=== PATIENT | female | born 1975 | race Caucasian/White ===

== ENCOUNTER 2016-07-05 19:48 | Emergency (ER) | payer MEDICAID ==
[2016-07-05 21:00] LABS: microscopic required? NO
[2016-07-05 21:04] LABS: urine erythrocyte NEGATIVE (NEGATIVE)
[2016-07-05 21:29] LABS: BASOPHIL % 0.1 % (0-2); PLATELET COUNT 304 x10^3mcL (130-400); RED CELL DISTRIBUTION WIDTH 13.5 % (11.5-14.5)
[2016-07-05 21:32] LABS: CALCIUM 8.3 mg/dL (8.5-10.1); CARBON DIOXIDE 30.6 mmol/L (21-32); CHLORIDE SERUM 101 mmol/L (98-107); CREATININE SERUM 0.7 mg/dL (0.6-1.0); GFR1 > 60 mL/min; GLUCOSE SERUM 332 mg/dL (74-106); POTASSIUM SERUM 3.9 mmol/L (3.5-5.1); SODIUM SERUM 137 mmol/L (136-145)
[2016-07-05 21:37] LABS: ALKALINE PHOSPHATASE 103 U/L (46-116); ALT/SGPT 24 U/L (14-59); AST/SGOT 13 U/L (15-37); BILIRUBIN TOTAL 0.26 mg/dL (0.20-1.00); LIPASE 198 IU/L (73-393); TOTAL PROTEIN, SERUM 6.4 g/dL (6.4-8.2)
[2016-07-05 22:31] VITALS: BP 133/87
== END 2016-07-05 22:31 | disposition home or self-care (01) ==
LOC: ED 19:48
PROVIDERS: Emergency Medicine
DX: E11.65 Type 2 diabetes mellitus with hyperglycemia (principal); Z79.4 Long term (current) use of insulin
CPT/HCPCS: 36600; 82962; J7030

== ENCOUNTER 2017-06-12 07:54 | Inpatient (IN) | payer OTHER ==
[~2017-06-12] VITALS: Ht 157.5 cm; Wt 61.3 kg
[2017-06-12 09:48] LABS: microscopic required? NO
[2017-06-12 10:08] LABS: BASOPHIL % 0.1 % (0-2); PLATELET COUNT 386 x10^3mcL (130-400)
[2017-06-12 10:15] LABS: RED CELL DISTRIBUTION WIDTH 16.2 % (11.5-14.5)
[2017-06-12 10:20] LABS: UA SPECIFIC GRAVITY <=1.005 (1.005-1.035); urine erythrocyte NEGATIVE (NEGATIVE)
[2017-06-12 10:43] LABS: CALCIUM 9.2 mg/dL (8.5-10.1); CARBON DIOXIDE 28.8 mmol/L (21-32); CHLORIDE SERUM 97 mmol/L (98-107); CREATININE SERUM 0.8 mg/dL (0.6-1.0); GFR1 > 60 mL/min; GLUCOSE SERUM 421 mg/dL (74-106); POTASSIUM SERUM 4.5 mmol/L (3.5-5.1); SODIUM SERUM 133 mmol/L (136-145)
[2017-06-12] MEDS ORDERED: NOVI SQ (10:43)
[2017-06-12] MEDS ORDERED: LANTUS SOLOS100 U/M1 SQ (10:43)
[2017-06-12 10:47] LABS: ALKALINE PHOSPHATASE 428 U/L (46-116); ALT/SGPT 115 U/L (14-59); AST/SGOT 70 U/L (15-37); BILIRUBIN TOTAL 0.24 mg/dL (0.20-1.00); LIPASE 55 IU/L (73-393); TOTAL PROTEIN, SERUM 7.4 g/dL (6.4-8.2)
[2017-06-12 10:48] LABS: ALBUMIN 2.4 g/dL (3.4-5.0); AMYLASE 16 U/L (25-115); CHOLESTEROL 89 mg/dL (<200); HDL CHOLESTEROL 34 mg/dL (40-60)
[2017-06-12 13:29] VITALS: BP 125/78
[2017-06-12 13:31] LABS: CHOLESTEROL/HDL RATIO 2.6
[2017-06-12 13:43] VITALS: Ht 157.5 cm; Wt 61.3 kg
[2017-06-12 13:49] LABS: AMPHETAMINE QUAL UR POSITIVE (NEG <=1000)
[2017-06-12 16:53] VITALS: BP 128/76
[2017-06-12 16:59] VITALS: BP 154/74
[2017-06-12 21:13] VITALS: BP 126/79
[2017-06-13 05:49] VITALS: BP 123/79
[2017-06-13 06:53] LABS: CALCIUM 8.2 mg/dL (8.5-10.1); CARBON DIOXIDE 22.5 mmol/L (21-32); CHLORIDE SERUM 105 mmol/L (98-107); CREATININE SERUM 0.7 mg/dL (0.6-1.0); GFR1 > 60 mL/min; GLUCOSE SERUM 133 mg/dL (74-106); SODIUM SERUM 137 mmol/L (136-145)
[2017-06-13 06:58] LABS: PLATELET COUNT 372 x10^3mcL (130-400)
[2017-06-13 07:04] LABS: BASOPHIL % 0 % (0-2); RED CELL DISTRIBUTION WIDTH 16.3 % (11.5-14.5)
== END 2017-06-13 07:04 | disposition left against medical advice (07) | DRG 139 ==
LOC: ED 07:54 → DU 12:19
PROVIDERS: Emergency Medicine; Family Medicine
DX: J18.9 Pneumonia, unspecified organism (principal); N17.0 Acute kidney failure with tubular necrosis; E43 Unspecified severe protein-calorie malnutrition; E87.8 Other disorders of electrolyte and fluid balance, not elsewhere classified; F32.9 Major depressive disorder, single episode, unspecified; F17.210 Nicotine dependence, cigarettes, uncomplicated; M54.5 Low back pain; E87.1 Hypo-osmolality and hyponatremia; D64.9 Anemia, unspecified; E11.65 Type 2 diabetes mellitus with hyperglycemia; E83.51 Hypocalcemia; F15.10 Other stimulant abuse, uncomplicated; Z98.51 Tubal ligation status; Z79.4 Long term (current) use of insulin
CPT/HCPCS: 36600; 82962; 83880; 94150; J1100; J1815; J1885; J1956; J7030; Q0092

== ENCOUNTER 2017-06-24 01:14 | Inpatient (IN) | payer OTHER ==
[~2017-06-24] VITALS: Ht 172.7 cm; Wt 60.7 kg
[~2017-06-24 01:14] MED LIST: LANTUS SOLOS100 U/M1 SQ; NOVI SQ
[2017-06-24 03:40] LABS: BASOPHIL % 0.8 % (0-2)
[2017-06-24 03:43] LABS: RED CELL DISTRIBUTION WIDTH 15.6 % (11.5-14.5)
[2017-06-24 03:44] LABS: BILIRUBIN TOTAL 0.4 mg/dL (0.20-1.00); CALCIUM 10.1 mg/dL (8.5-10.1); CARBON DIOXIDE 15.4 mmol/L (21-32); CREATININE SERUM 1.2 mg/dL (0.6-1.0); PLATELET COUNT 864 x10^3mcL (130-400); POTASSIUM SERUM 4.8 mmol/L (3.5-5.1); TOTAL PROTEIN, SERUM 8.2 g/dL (6.4-8.2)
[2017-06-24 03:50] LABS: UA SPECIFIC GRAVITY 1.015 (1.005-1.035); microscopic required? YES; urine erythrocyte TRACE (NEGATIVE)
[2017-06-24 03:53] LABS: ALBUMIN 3.1 g/dL (3.4-5.0)
[2017-06-24 04:03] LABS: AMPHETAMINE QUAL UR POSITIVE (NEG <=1000)
[2017-06-24 04:31] LABS: GLUCOSE SERUM 861.88 mg/dL (74-106)
[2017-06-24 06:11] LABS: MAGNESIUM 2.5 mg/dL (1.8-2.4); PHOSPHOROUS 4.4 mg/dL (2.5-4.9)
[2017-06-24 06:12] LABS: CHOLESTEROL/HDL RATIO 4.6
[2017-06-24 06:15] VITALS: BP 116/58
[2017-06-24 06:35] LABS: FREE T4 1.27 ng/dL (0.76-1.46); FREE THYROXINE INDEX 3.2 ug/dL (1.4-4.5); T4(THYROXINE) 9.7 ug/dL (4.7-13.3)
[2017-06-24 07:15] VITALS: BP 110/60
[2017-06-24 09:03] LABS: T3 TOTAL 0.7 ng/mL
[2017-06-24 09:29] LABS: CALCIUM 9.6 mg/dL (8.5-10.1); CARBON DIOXIDE 24.8 mmol/L (21-32); CHLORIDE SERUM 99 mmol/L (98-107); CREATININE SERUM 0.9 mg/dL (0.6-1.0); GFR1 > 60 mL/min; GLUCOSE SERUM 225 mg/dL (74-106); MAGNESIUM 2.4 mg/dL (1.8-2.4); PHOSPHOROUS 2.6 mg/dL (2.5-4.9); POTASSIUM SERUM 3.5 mmol/L (3.5-5.1); SODIUM SERUM 126 mmol/L (136-145)
[2017-06-24 11:00] VITALS: BP 130/74
[2017-06-24 14:58] LABS: CALCIUM 8.5 mg/dL (8.5-10.1); CARBON DIOXIDE 18.9 mmol/L (21-32); CHLORIDE SERUM 100 mmol/L (98-107); CREATININE SERUM 0.7 mg/dL (0.6-1.0); GFR1 > 60 mL/min; GLUCOSE SERUM 381 mg/dL (74-106); MAGNESIUM 2.1 mg/dL (1.8-2.4); PHOSPHOROUS 2.2 mg/dL (2.5-4.9); POTASSIUM SERUM 5.2 mmol/L (3.5-5.1); SODIUM SERUM 126 mmol/L (136-145)
[2017-06-24 15:25] VITALS: BP 126/66
[2017-06-24 20:00] VITALS: BP 106/61
[2017-06-25 00:02] VITALS: BP 112/70
[2017-06-25 04:00] VITALS: BP 117/55
[2017-06-25 05:43] LABS: BASOPHIL % 0.6 % (0-2); RED BLOOD CELLS 3.49 M/mm3 (4.10-5.10)
[2017-06-25 05:46] LABS: RED CELL DISTRIBUTION WIDTH 15.5 % (11.5-14.5)
[2017-06-25 05:50] LABS: PLATELET COUNT 714 x10^3mcL (130-400)
[2017-06-25 06:01] LABS: CALCIUM 8.2 mg/dL (8.5-10.1); CARBON DIOXIDE 27.1 mmol/L (21-32); CHLORIDE SERUM 104 mmol/L (98-107); CREATININE SERUM 0.7 mg/dL (0.6-1.0); GFR1 > 60 mL/min; GLUCOSE SERUM 80 mg/dL (74-106); MAGNESIUM 1.7 mg/dL (1.8-2.4); PHOSPHOROUS 2.4 mg/dL (2.5-4.9); POTASSIUM SERUM 3.4 mmol/L (3.5-5.1); SODIUM SERUM 139 mmol/L (136-145)
[2017-06-25 06:07] LABS: IRON 38 ug/dL (50-170); TOTAL IRON BINDING CAPACITY 294 ug/dL (250-450)
[2017-06-25 08:01] VITALS: BP 117/50
[2017-06-25 11:12] VITALS: Ht 172.7 cm; Wt 60.7 kg
[2017-06-25 14:33] VITALS: BP 127/72
[2017-06-25 16:08] VITALS: BP 121/65
[2017-06-25 21:20] VITALS: BP 123/71
[2017-06-26 05:24] VITALS: BP 111/69
[2017-06-26 06:17] LABS: BASOPHIL % 0.5 % (0-2)
[2017-06-26 06:29] LABS: PLATELET COUNT 571 x10^3mcL (130-400); RED CELL DISTRIBUTION WIDTH 15.6 % (11.5-14.5)
[2017-06-26 06:48] LABS: CALCIUM 8.3 mg/dL (8.5-10.1); CARBON DIOXIDE 25.8 mmol/L (21-32); CHLORIDE SERUM 99 mmol/L (98-107); CREATININE SERUM 0.7 mg/dL (0.6-1.0); GFR1 > 60 mL/min; GLUCOSE SERUM 290 mg/dL (74-106); MAGNESIUM 2.1 mg/dL (1.8-2.4); PHOSPHOROUS 2.9 mg/dL (2.5-4.9); POTASSIUM SERUM 4.4 mmol/L (3.5-5.1); SODIUM SERUM 135 mmol/L (136-145)
[2017-06-26 08:18] VITALS: BP 117/55
[2017-06-26 13:30] VITALS: BP 138/77
[2017-06-26 16:38] VITALS: BP 134/83
[2017-06-26 20:26] VITALS: BP 136/80
[2017-06-27 06:50] VITALS: BP 112/68
[2017-06-27 07:24] LABS: BASOPHIL % 0.4 % (0-2); PLATELET COUNT 537 x10^3mcL (130-400)
[2017-06-27 07:31] LABS: CALCIUM 8.6 mg/dL (8.5-10.1); CARBON DIOXIDE 26.5 mmol/L (21-32); CHLORIDE SERUM 101 mmol/L (98-107); CREATININE SERUM 0.6 mg/dL (0.6-1.0); GFR1 > 60 mL/min; GLUCOSE SERUM 331 mg/dL (74-106); MAGNESIUM 1.9 mg/dL (1.8-2.4); PHOSPHOROUS 3.4 mg/dL (2.5-4.9); POTASSIUM SERUM 4.8 mmol/L (3.5-5.1); SODIUM SERUM 134 mmol/L (136-145)
[2017-06-27 09:30] VITALS: BP 125/68
[2017-06-27 13:25] VITALS: BP 119/65
[2017-06-27 17:18] VITALS: BP 141/79
[2017-06-27 21:59] VITALS: BP 122/65
[2017-06-28 06:17] VITALS: BP 128/66
[2017-06-28 07:27] LABS: BASOPHIL % 0.7 % (0-2)
[2017-06-28 07:33] LABS: PLATELET COUNT 470 x10^3mcL (130-400)
[2017-06-28 07:42] LABS: CALCIUM 8.5 mg/dL (8.5-10.1); CHLORIDE SERUM 101 mmol/L (98-107); CREATININE SERUM 0.8 mg/dL (0.6-1.0); GFR1 > 60 mL/min; GLUCOSE SERUM 403 mg/dL (74-106); MAGNESIUM 2.1 mg/dL (1.8-2.4); PHOSPHOROUS 4.4 mg/dL (2.5-4.9); POTASSIUM SERUM 4.7 mmol/L (3.5-5.1); SODIUM SERUM 136 mmol/L (136-145)
[2017-06-28 09:53] VITALS: BP 118/63
[2017-06-28 13:38] VITALS: BP 123/73
[2017-06-28 17:40] VITALS: BP 137/83
[2017-06-28] MEDS ORDERED: MOT800 PO (18:55)
[2017-06-28 19:38] VITALS: BP 137/83
== END 2017-06-28 20:03 | disposition home or self-care (01) | DRG 420 ==
LOC: ED 01:14 → IC 04:40 → DU 06-25 14:15
PROVIDERS: Emergency Medicine; Family Medicine
DX: E10.10 Type 1 diabetes mellitus with ketoacidosis without coma (principal); N17.0 Acute kidney failure with tubular necrosis; E87.1 Hypo-osmolality and hyponatremia; M25.552 Pain in left hip; F32.9 Major depressive disorder, single episode, unspecified; F15.10 Other stimulant abuse, uncomplicated; D64.9 Anemia, unspecified; D47.3 Essential (hemorrhagic) thrombocythemia; E44.0 Moderate protein-calorie malnutrition; Z68.23 Body mass index [BMI] 23.0-23.9, adult; E83.41 Hypermagnesemia; E83.39 Other disorders of phosphorus metabolism; E03.9 Hypothyroidism, unspecified; E87.5 Hyperkalemia; E78.1 Pure hyperglyceridemia
CPT/HCPCS: 36600; 82962; 83880; 84439; G0480; J1815; J1885; J2060; J2543; J3475; J3490; J7030; J7042; Q0092; Q0162; Q0177

== ENCOUNTER 2017-07-09 23:50 | Emergency (ER) | payer OTHER ==
[~2017-07-09 23:50] MED LIST changes: +MOT800 PO
[2017-07-10 04:55] VITALS: BP 114/65
== END 2017-07-10 04:55 | disposition home or self-care (01) ==
LOC: ED 23:50
DX: E11.65 Type 2 diabetes mellitus with hyperglycemia (principal); F41.9 Anxiety disorder, unspecified
CPT/HCPCS: 82962; J1815

== ENCOUNTER 2017-08-25 14:31 | Inpatient (IN) | payer OTHER ==
[~2017-08-25] VITALS: Ht 157.5 cm; Wt 54.9 kg
[2017-08-25] MEDS ORDERED: CELEXA20 MG PO (15:19)
[2017-08-25 15:36] LABS: BASOPHIL % 0.4 % (0-2); PLATELET COUNT 325 x10^3mcL (130-400)
[2017-08-25 15:38] LABS: RED CELL DISTRIBUTION WIDTH 15.6 % (11.5-14.5)
[2017-08-25 15:58] LABS: FREE T4 1.07 ng/dL (0.76-1.46); FREE THYROXINE INDEX 2.3 ug/dL (1.4-4.5); T4(THYROXINE) 7.1 ug/dL (4.7-13.3)
[2017-08-25 15:59] LABS: CK-MB 0.7 ng/mL (0-3.6)
[2017-08-25 16:01] LABS: T3 TOTAL 0.62 ng/mL
[2017-08-25 16:02] LABS: BILIRUBIN TOTAL 0.4 mg/dL (0.20-1.00); C REACTIVE PROTEIN 1.2 mg/dL (<=0.9); CALCIUM 8.4 mg/dL (8.5-10.1); CARBON DIOXIDE 15.9 mmol/L (21-32); CREATININE SERUM 1.1 mg/dL (0.6-1.0); POTASSIUM SERUM 5.4 mmol/L (3.5-5.1); TOTAL PROTEIN, SERUM 7.1 g/dL (6.4-8.2)
[2017-08-25 16:11] LABS: ALBUMIN 3.2 g/dL (3.4-5.0)
[2017-08-25 16:16] LABS: UA SPECIFIC GRAVITY <=1.005 (1.005-1.035); microscopic required? YES; urine erythrocyte 3+ (NEGATIVE)
[2017-08-25 16:22] LABS: ERYTHROCYTE SED RATE 27 mm/hr (0-20)
[2017-08-25 17:31] LABS: MAGNESIUM 2.1 mg/dL (1.8-2.4); PHOSPHOROUS 4.7 mg/dL (2.5-4.9)
[2017-08-25 18:05] VITALS: BP 108/60
[2017-08-25 18:44] LABS: AMPHETAMINE QUAL UR POSITIVE (NEG <=1000)
[2017-08-25 20:00] VITALS: BP 101/55
[2017-08-25 20:03] VITALS: Ht 157.5 cm; Wt 54.9 kg
[2017-08-25 20:59] LABS: CALCIUM 7.6 mg/dL (8.5-10.1); CARBON DIOXIDE 20.6 mmol/L (21-32); CHLORIDE SERUM 101 mmol/L (98-107); CREATININE SERUM 0.8 mg/dL (0.6-1.0); GFR1 > 60 mL/min; GLUCOSE SERUM 284 mg/dL (74-106); MAGNESIUM 1.7 mg/dL (1.8-2.4); PHOSPHOROUS 3.1 mg/dL (2.5-4.9); POTASSIUM SERUM 3.8 mmol/L (3.5-5.1); SODIUM SERUM 132 mmol/L (136-145)
[2017-08-25 21:00] VITALS: BP 102/55
[2017-08-25 22:00] VITALS: BP 83/49
[2017-08-26] VITALS (12 sets, daily range): BP systolic 89–108; BP diastolic 49–65
[2017-08-26 01:47] LABS: CALCIUM 7.3 mg/dL (8.5-10.1); CARBON DIOXIDE 23.8 mmol/L (21-32); CHLORIDE SERUM 104 mmol/L (98-107); CREATININE SERUM 0.7 mg/dL (0.6-1.0); GFR1 > 60 mL/min; GLUCOSE SERUM 202 mg/dL (74-106); MAGNESIUM 1.8 mg/dL (1.8-2.4); PHOSPHOROUS 3.5 mg/dL (2.5-4.9); SODIUM SERUM 135 mmol/L (136-145)
[2017-08-26 05:01] LABS: BASOPHIL % 0.8 % (0-2); PLATELET COUNT 302 x10^3mcL (130-400); RED CELL DISTRIBUTION WIDTH 15.8 % (11.5-14.5)
[2017-08-26 05:08] LABS: CALCIUM 7.3 mg/dL (8.5-10.1); CARBON DIOXIDE 23.4 mmol/L (21-32); CHLORIDE SERUM 106 mmol/L (98-107); CREATININE SERUM 0.6 mg/dL (0.6-1.0); GFR1 > 60 mL/min; GLUCOSE SERUM 107 mg/dL (74-106); MAGNESIUM 1.9 mg/dL (1.8-2.4); PHOSPHOROUS 3.1 mg/dL (2.5-4.9); POTASSIUM SERUM 3.8 mmol/L (3.5-5.1); SODIUM SERUM 136 mmol/L (136-145)
[2017-08-27 05:31] VITALS: BP 132/71
[2017-08-27 06:50] LABS: BASOPHIL % 0.4 % (0-2); PLATELET COUNT 250 x10^3mcL (130-400)
[2017-08-27 06:55] LABS: CALCIUM 7.5 mg/dL (8.5-10.1); CARBON DIOXIDE 26.1 mmol/L (21-32); CHLORIDE SERUM 112 mmol/L (98-107); CREATININE SERUM 0.5 mg/dL (0.6-1.0); GFR1 > 60 mL/min; GLUCOSE SERUM 143 mg/dL (74-106); MAGNESIUM 1.9 mg/dL (1.8-2.4); PHOSPHOROUS 3.2 mg/dL (2.5-4.9); POTASSIUM SERUM 3.8 mmol/L (3.5-5.1); SODIUM SERUM 139 mmol/L (136-145)
[2017-08-27 07:43] LABS: IRON 37 ug/dL (50-170); TOTAL IRON BINDING CAPACITY 262 ug/dL (250-450)
[2017-08-27 08:58] VITALS: BP 103/50
[2017-08-27 11:19] LABS: RED BLOOD CELLS 3.61 M/mm3 (4.10-5.10)
[2017-08-27 13:50] VITALS: BP 121/68
[2017-08-27] MEDS ORDERED: CELEXA20 MG PO (14:06)
[2017-08-27] MEDS ORDERED: NOVOLOG FLEX100 U/M1 SC (14:08)
[2017-08-27 14:32] VITALS: BP 121/68
== END 2017-08-27 15:26 | disposition home or self-care (01) | DRG 420 ==
LOC: ED 14:31 → DU 16:19 → IC 16:19 → DU 08-26 16:51
PROVIDERS: Family Medicine; Specialist; Student in an Organized Health Care Education/Training Program
PROC: 02HV33Z Insertion of Infusion Device into Superior Vena Cava, Percutaneous Approach (ICD-10-PCS; principal; 2017-08-25)
PROC: B548ZZA Ultrasonography of Superior Vena Cava, Guidance (ICD-10-PCS; 2017-08-25)
DX: E10.10 Type 1 diabetes mellitus with ketoacidosis without coma (principal); N17.0 Acute kidney failure with tubular necrosis; E10.51 Type 1 diabetes mellitus with diabetic peripheral angiopathy without gangrene; E87.5 Hyperkalemia; F32.9 Major depressive disorder, single episode, unspecified; K21.9 Gastro-esophageal reflux disease without esophagitis; F17.210 Nicotine dependence, cigarettes, uncomplicated; F12.90 Cannabis use, unspecified, uncomplicated; E87.1 Hypo-osmolality and hyponatremia; E44.0 Moderate protein-calorie malnutrition; E86.0 Dehydration; Z79.4 Long term (current) use of insulin; Z91.14 Patient's other noncompliance with medication regimen; Z68.1 Body mass index [BMI] 19.9 or less, adult; Z98.51 Tubal ligation status
CPT/HCPCS: 36556; 36600; 82962; 83880; 84439; J1642; J1815; J1885; J2060; J2405; J3490; J7030; Q0092

== ENCOUNTER 2017-10-08 12:33 | Emergency (ER) | payer OTHER ==
[~2017-10-08] VITALS: Ht 157.5 cm; Wt 58.5 kg
[~2017-10-08 12:33] MED LIST changes: +CELEXA20 MG PO; +NOVOLOG FLEX100 U/M1 SC
[2017-10-08 12:37] VITALS: Ht 157.5 cm; Wt 58.5 kg
[2017-10-08 13:14] LABS: BASOPHIL % 0.3 % (0-2); PLATELET COUNT 322 x10^3mcL (130-400); RED CELL DISTRIBUTION WIDTH 13.9 % (11.5-14.5)
[2017-10-08 13:21] LABS: CALCIUM 7.6 mg/dL (8.5-10.1); CARBON DIOXIDE 27.5 mmol/L (21-32); CHLORIDE SERUM 100 mmol/L (98-107); CREATININE SERUM 0.7 mg/dL (0.6-1.0); GFR1 > 60 mL/min; GLUCOSE SERUM 411 mg/dL (74-106); POTASSIUM SERUM 4.1 mmol/L (3.5-5.1); SODIUM SERUM 133 mmol/L (136-145)
[2017-10-08 15:15] LABS: microscopic required? NO
[2017-10-08 15:48] LABS: urine erythrocyte NEGATIVE (NEGATIVE)
[2017-10-08 15:55] VITALS: BP 115/64
== END 2017-10-08 15:55 | disposition home or self-care (01) ==
LOC: ED 12:33
PROVIDERS: Emergency Medicine
DX: E86.0 Dehydration (principal); E11.65 Type 2 diabetes mellitus with hyperglycemia; K05.00 Acute gingivitis, plaque induced; B35.3 Tinea pedis; E83.51 Hypocalcemia; K21.9 Gastro-esophageal reflux disease without esophagitis
CPT/HCPCS: 83880; J1815; J7030; Q0092

== ENCOUNTER 2018-03-25 21:47 | Inpatient (IN) | payer OTHER ==
[~2018-03-25] VITALS: Ht 157.5 cm; Wt 59.6 kg
[2018-03-25 22:48] LABS: microscopic required? NO
[2018-03-25 23:19] LABS: UA SPECIFIC GRAVITY <=1.005 (1.005-1.035); urine erythrocyte NEGATIVE (NEGATIVE)
[2018-03-25 23:19] LABS: BASOPHIL % 0.5 % (0-2); PLATELET COUNT 232 x10^3mcL (130-400)
[2018-03-25 23:21] LABS: CALCIUM 8.3 mg/dL (8.5-10.1); CREATININE SERUM 1.1 mg/dL (0.6-1.0); POTASSIUM SERUM 4.6 mmol/L (3.5-5.1)
[2018-03-25 23:26] LABS: RED CELL DISTRIBUTION WIDTH 14.6 % (11.5-14.5)
[2018-03-25 23:48] LABS: BILIRUBIN TOTAL 0.32 mg/dL (0.20-1.00); TOTAL PROTEIN, SERUM 7.1 g/dL (6.4-8.2)
[2018-03-25 23:52] LABS: ALBUMIN 3.2 g/dL (3.4-5.0)
[2018-03-26 03:48] VITALS: BP 113/54
[2018-03-26 05:01] LABS: CALCIUM 8.4 mg/dL (8.5-10.1); CARBON DIOXIDE 25.5 mmol/L (21-32); CHLORIDE SERUM 103 mmol/L (98-107); CREATININE SERUM 0.7 mg/dL (0.6-1.0); GFR1 > 60 mL/min; GLUCOSE SERUM 139 mg/dL (74-106); MAGNESIUM 1.8 mg/dL (1.8-2.4); PHOSPHOROUS 2.7 mg/dL (2.5-4.9); POTASSIUM SERUM 3.1 mmol/L (3.5-5.1); SODIUM SERUM 137 mmol/L (136-145)
[2018-03-26 07:58] VITALS: Ht 157.5 cm; Wt 59.6 kg
[2018-03-26 08:10] VITALS: BP 105/70
[2018-03-26 08:23] LABS: CARBON DIOXIDE 22.3 mmol/L (21-32); CHLORIDE SERUM 100 mmol/L (98-107); CREATININE SERUM 0.7 mg/dL (0.6-1.0); GFR1 > 60 mL/min; GLUCOSE SERUM 288 mg/dL (74-106); MAGNESIUM 1.8 mg/dL (1.8-2.4); PHOSPHOROUS 3.5 mg/dL (2.5-4.9); POTASSIUM SERUM 4.2 mmol/L (3.5-5.1); SODIUM SERUM 132 mmol/L (136-145)
[2018-03-26 11:03] LABS: AMPHETAMINE QUAL UR POSITIVE (See below)
[2018-03-26 12:32] LABS: CALCIUM 7.9 mg/dL (8.5-10.1); CARBON DIOXIDE 20.9 mmol/L (21-32); CHLORIDE SERUM 95 mmol/L (98-107); CREATININE SERUM 0.8 mg/dL (0.6-1.0); GFR1 > 60 mL/min; MAGNESIUM 1.7 mg/dL (1.8-2.4); PHOSPHOROUS 3.5 mg/dL (2.5-4.9); POTASSIUM SERUM 5.1 mmol/L (3.5-5.1); SODIUM SERUM 127 mmol/L (136-145)
[2018-03-26 12:35] LABS: GLUCOSE SERUM 484 mg/dL (74-106)
[2018-03-26 17:00] VITALS: BP 97/58
[2018-03-26 22:14] VITALS: BP 96/57
[2018-03-27 05:43] VITALS: BP 116/66
[2018-03-27 07:10] LABS: CALCIUM 8.6 mg/dL (8.5-10.1); CARBON DIOXIDE 25.7 mmol/L (21-32); CHLORIDE SERUM 101 mmol/L (98-107); CREATININE SERUM 0.6 mg/dL (0.6-1.0); GFR1 > 60 mL/min; GLUCOSE SERUM 259 mg/dL (74-106); MAGNESIUM 1.7 mg/dL (1.8-2.4); PHOSPHOROUS 3.6 mg/dL (2.5-4.9); POTASSIUM SERUM 3.9 mmol/L (3.5-5.1); SODIUM SERUM 134 mmol/L (136-145)
[2018-03-27 09:18] LABS: BASOPHIL % 0.5 % (0-2); PLATELET COUNT 251 x10^3mcL (130-400)
[2018-03-27 09:29] LABS: RED CELL DISTRIBUTION WIDTH 14.8 % (11.5-14.5)
[2018-03-27 09:33] VITALS: BP 109/61
[2018-03-27 16:58] VITALS: BP 100/57
[2018-03-27 21:09] VITALS: BP 99/51
[2018-03-28 06:08] VITALS: BP 105/61
[2018-03-28 06:21] LABS: BASOPHIL % 0.3 % (0-2); PLATELET COUNT 354 x10^3mcL (130-400)
[2018-03-28 06:24] LABS: CALCIUM 8.8 mg/dL (8.5-10.1); CARBON DIOXIDE 30.1 mmol/L (21-32); CHLORIDE SERUM 101 mmol/L (98-107); CREATININE SERUM 0.7 mg/dL (0.6-1.0); GFR1 > 60 mL/min; GLUCOSE SERUM 144 mg/dL (74-106); MAGNESIUM 1.9 mg/dL (1.8-2.4); SODIUM SERUM 138 mmol/L (136-145)
[2018-03-28 06:44] LABS: RED CELL DISTRIBUTION WIDTH 15.3 % (11.5-14.5)
[2018-03-28 09:00] VITALS: BP 103/54
[2018-03-28 09:47] VITALS: BP 103/54
[2018-03-28 16:24] VITALS: BP 116/69
[2018-03-28 19:20] VITALS: BP 102/54
[2018-03-28 21:21] VITALS: BP 98/42
[2018-03-29 06:40] VITALS: BP 110/47
[2018-03-29 10:25] VITALS: BP 115/61
[2018-03-29 18:46] VITALS: BP 112/65
[2018-03-29 20:00] VITALS: BP 108/50
[2018-03-30 05:39] VITALS: BP 106/58
[2018-03-30 06:41] LABS: BASOPHIL % 0.4 % (0-2); PLATELET COUNT 298 x10^3mcL (130-400); RED CELL DISTRIBUTION WIDTH 14.4 % (11.5-14.5)
[2018-03-30 06:52] LABS: CALCIUM 8.4 mg/dL (8.5-10.1); CARBON DIOXIDE 26.3 mmol/L (21-32); CHLORIDE SERUM 100 mmol/L (98-107); CREATININE SERUM 0.7 mg/dL (0.6-1.0); GFR1 > 60 mL/min; GLUCOSE SERUM 260 mg/dL (74-106); POTASSIUM SERUM 4.4 mmol/L (3.5-5.1); SODIUM SERUM 133 mmol/L (136-145)
[2018-03-30 09:01] VITALS: BP 106/56
[2018-03-30 17:22] VITALS: BP 120/69
[2018-03-30 20:31] VITALS: BP 109/56
[2018-03-31 05:48] VITALS: BP 102/54
[2018-03-31 06:33] LABS: BASOPHIL % 0.4 % (0-2); PLATELET COUNT 278 x10^3mcL (130-400)
[2018-03-31 06:38] LABS: CALCIUM 8.4 mg/dL (8.5-10.1); CARBON DIOXIDE 23.5 mmol/L (21-32); CHLORIDE SERUM 100 mmol/L (98-107); CREATININE SERUM 0.7 mg/dL (0.6-1.0); GFR1 > 60 mL/min; GLUCOSE SERUM 297 mg/dL (74-106); POTASSIUM SERUM 4.4 mmol/L (3.5-5.1); SODIUM SERUM 133 mmol/L (136-145)
[2018-03-31 06:42] LABS: RED CELL DISTRIBUTION WIDTH 15.3 % (11.5-14.5)
[2018-03-31 09:56] VITALS: BP 115/56
[2018-03-31 17:10] VITALS: BP 112/41
[2018-03-31 21:23] VITALS: BP 135/72
[2018-04-01 05:37] VITALS: BP 109/63
[2018-04-01 06:55] LABS: BASOPHIL % 0.6 % (0-2); PLATELET COUNT 292 x10^3mcL (130-400)
[2018-04-01 07:01] LABS: CALCIUM 8.9 mg/dL (8.5-10.1); CARBON DIOXIDE 26.9 mmol/L (21-32); CHLORIDE SERUM 103 mmol/L (98-107); CREATININE SERUM 0.8 mg/dL (0.6-1.0); GFR1 > 60 mL/min; GLUCOSE SERUM 120 mg/dL (74-106); POTASSIUM SERUM 4.2 mmol/L (3.5-5.1); SODIUM SERUM 138 mmol/L (136-145)
[2018-04-01 08:42] VITALS: BP 129/76
[2018-04-01] MEDS ORDERED: AMO500 PO (12:19)
[2018-04-01] MEDS ORDERED: LEXAPRO10 MG PO (12:19)
[2018-04-01] MEDS ORDERED: NOVI SQ (12:19)
[2018-04-01] MEDS ORDERED: BG FS (12:19)
[2018-04-01] MEDS ORDERED: LANTUS SOLOS100 U/M1 SQ (12:19)
== END 2018-04-01 15:52 | disposition home or self-care (01) | DRG 420 ==
LOC: ED 21:47 → MU 03-26 01:13 → IC 03-26 01:13 → MU 03-26 16:55
PROVIDERS: Emergency Medicine; Family Medicine; ADMIT Internal Medicine
DX: E11.00 Type 2 diabetes mellitus with hyperosmolarity without nonketotic hyperglycemic-hyperosmolar coma (NKHHC) (principal); N17.0 Acute kidney failure with tubular necrosis; D68.69 Other thrombophilia; E44.1 Mild protein-calorie malnutrition; E83.51 Hypocalcemia; E87.1 Hypo-osmolality and hyponatremia; F15.10 Other stimulant abuse, uncomplicated; K21.9 Gastro-esophageal reflux disease without esophagitis; F41.9 Anxiety disorder, unspecified; E87.6 Hypokalemia; K04.7 Periapical abscess without sinus; F17.210 Nicotine dependence, cigarettes, uncomplicated; F32.9 Major depressive disorder, single episode, unspecified; Z59.0 Homelessness; Z79.4 Long term (current) use of insulin; Z68.22 Body mass index [BMI] 22.0-22.9, adult; Z98.51 Tubal ligation status; Z56.0 Unemployment, unspecified; Z71.6 Tobacco abuse counseling
CPT/HCPCS: 36600; 82962; J1815; J2060; J2405; J3480; J3490; J7030; Q0092

== ENCOUNTER 2018-08-20 13:33 | Inpatient (IN) | payer MEDICAID ==
[~2018-08-20] VITALS: Ht 157.5 cm; Wt 64.1 kg
[~2018-08-20 13:33] MED LIST changes: +AMO500 PO; +BG FS; +GABAPENTIN100 M2 PO; +LEXAPRO10 MG PO
--- NOTE | 2018-08-20 13:50 | NUR ---
PT BIB AMBULANCE TODAY WITH C/C OF HIGH BLOOD SUGAR. PT WAS HAVING A FOLLOW UP APPT TODAY FOR HER CHIN ABSCESS WHEN SHE ALSO HAD A ROUTINE BLOOD SUGAR CHECKED AND IT WAS IN THE "400'S." MD AT THE CLINIC CALLED 911 TO HAVE PT FURTHER EVALUATED. PT REPORTS RECENTLY HAVING POLYURIA, POLYDIPSIA, AND POLYPHAGIA. PT IS AWAKE AND ALERT, RESP E/U, NAD NOTED. MSE COMPLETED BY DR REGAN. PT CHANGED INTO GOWN AND PLACED ON MONITOR. WILL CONTINUE TO MONITOR.
--- NOTE | 2018-08-20 14:24 | NUR ---
ATTEMPTED IV ACCESS X2, UNSUCCESSFUL. RN SCARLETT AWARE AND CURRENTLY ATTEMPTING AT BEDSIDE.
[2018-08-20 14:48] LABS: BASOPHIL % 0.9 % (0-2); PLATELET COUNT 396 x10^3mcL (130-400); RED CELL DISTRIBUTION WIDTH 13.8 % (11.5-14.5)
[2018-08-20 14:52] LABS: CALCIUM 9.3 mg/dL (8.5-10.1); CARBON DIOXIDE 24.6 mmol/L (21-32); CHLORIDE SERUM 101 mmol/L (98-107); CREATININE SERUM 0.7 mg/dL (0.6-1.0); GFR1 > 60 mL/min; GLUCOSE SERUM 361 mg/dL (74-106); POTASSIUM SERUM 4.1 mmol/L (3.5-5.1); SODIUM SERUM 134 mmol/L (136-145)
[2018-08-20 15:01] LABS: ALKALINE PHOSPHATASE 120 U/L (46-116); ALT/SGPT 35 U/L (14-59); AST/SGOT 20 U/L (15-37); BILIRUBIN TOTAL 0.35 mg/dL (0.20-1.00); LIPASE 179 IU/L (73-393); TOTAL PROTEIN, SERUM 7.2 g/dL (6.4-8.2)
[2018-08-20 15:02] LABS: ALBUMIN 3.2 g/dL (3.4-5.0)
--- NOTE | 2018-08-20 15:08 | NUR ---
MULTIPLE ATTEMPTS AT IV ACCESS ATTEMPTED AT THIS TIME BY MYSELF AND RAUL PANTOJA, UNSUCCESSFUL, DR REGAN AWARE.
[2018-08-20 15:09] LABS: microscopic required? NO
[2018-08-20] MEDS ORDERED: BASAGLAR K100 UNIT/1 SQ (15:29)
[2018-08-20] MEDS ORDERED: NEU300 PO (15:29)
[2018-08-20] MEDS ORDERED: VOLTAREN100 GM TOP (15:29)
[2018-08-20] MEDS ORDERED: IBUPROFEN400 MG PO (15:30)
[2018-08-20] MEDS ORDERED: HUMALOG KW100 UNIT/1 SQ (15:32)
[2018-08-20] MEDS ORDERED: VITAMIN D32000 I2 PO (15:33)
--- NOTE | 2018-08-20 15:38 | NUR ---
PER DR REGAN, PT TO BE ATTEMPTED AND HAVE PICC LINE PLACED ON FLOOR. PER DR REGAN OKAY TO HOLD FLUIDS AT THIS TIME.
[2018-08-20 15:43] LABS: OSMOLALITY SERUM 296 mOsm/kg (278-298)
[2018-08-20 15:58] LABS: UA SPECIFIC GRAVITY 1.015 (1.005-1.035); urine erythrocyte NEGATIVE (NEGATIVE)
--- NOTE | 2018-08-20 16:01 | NUR ---
PT RESTING COMFORTABLY IN RNEY WITH EYES CLOSED, GOOD CHEST RISE AND FALL NOTED. NAD NOTED. CALL LIGHT IN REACH.
[2018-08-20 16:09] LABS: AMPHETAMINE QUAL UR POSITIVE (See below)
--- NOTE | 2018-08-20 16:57 | NUR ---
ATTEMPTED TO CALL REPORT, JULIAN UNABLE TO TAKE REPORT AT THIS TIME, PER [facility], WILL CALL BACK.
[2018-08-20 17:14] LABS: CHOLESTEROL/HDL RATIO 1.7; MAGNESIUM 2.3 mg/dL (1.8-2.4); PHOSPHOROUS 3.2 mg/dL (2.5-4.9)
--- NOTE | 2018-08-20 17:17 | NUR ---
REPORT CALLED TO RAUL JORDAN ON [facility] TO ASSUME CARE FOR PT. JULIAN AWARE THAT PT DOES NOT HAVE AN IV, AND THAT A PICC LINE WILL BE PLACED TONIGHT AT 1999.
[2018-08-20 17:22] LABS: T3 TOTAL 0.99 ng/mL
[2018-08-20 17:25] LABS: FREE T4 1.04 ng/dL (0.76-1.46); FREE THYROXINE INDEX 2.2 ug/dL (1.4-4.5)
--- NOTE | 2018-08-20 17:31 | NUR ---
SPOKE WITH [facility], WHOM WILL BE PLACING PICC LINE. ASKING FOR SIGNED CONSENT. PT ALREADY IN TRANSPORT TO [facility]. SPOKE TO JULIAN TO LET HER KNOW ABOUT SIGNED CONSENT, RAUL JORDAN AWARE.
--- NOTE | 2018-08-20 17:34 | NUR ---
RECEIVED PT FROM ED VIA [facility] BY PRIMARY NURSE NATHAN, CAME IN DUE TO FREQUENCY URINATION, NAUSEA,CHILLS AND THIRST. AAOX4. DENIES HEADACHE/DIZZINESS. NO SOB NOTED, LUNG SOUNDS CTA. DENIES CHEST PAIN/PRESSURE. DENIES ABDOMINAL DISCOMFORT. BOWEL SOUNDS ACTIVE. ABDOMEN IS SOFT. C/O FREQUENT URINATION. W/ SCABS ON THE RIGHT LOWER LIP AND CHIN AREA, CASH APPLICATION REPRESENTATIVE. NO IV ACCESS AT THIS TIME. SIDE RAILS UPX2. CALL LIGHT OIN REACH. PRIMARY NURSE NATHAN AT BEDSIDE FOR CONTINUITY OF CARE
--- NOTE | 2018-08-20 18:02 | NUR ---
DR. AVILA AT BEDSIDE EXPLAINING PICC LINE INSERTION PROCEDURE, ALL QUESTIONS AND CONCERNS ANSWERED. PT AGREEABLE WITH PLAN. INFORMED CONSENT SIGNED AND PLACED IN CHART.
[2018-08-20 18:05] VITALS: BP 114/57
[2018-08-20 18:11] VITALS: Ht 157.5 cm; Wt 64.1 kg
--- NOTE | 2018-08-20 18:17 | NUR ---
updated [employer] company that patient was admitted to :[id number].left message.
--- NOTE | 2018-08-20 18:24 | NUR ---
PT SITTING UP IN BED EATING DINNER. RESP EVEN AND UNLABORED ON RA. NO IV ACCESS. PENDING PICC LINE INSERTION. HOB ELEVATED. BED IN LOW POSITION, CALL LIGHT WITHIN REACH. WILL ENDORSE TO ONCOMING SHIFT.
[2018-08-20 19:56] VITALS: BP 102/44
--- NOTE | 2018-08-20 20:00 | NUR ---
RECEIVED PT IN BED, RESTING QUIETLY. RESP. EVEN AND UNLABORED. ON ROOM AIR, NO ACUTE DISTRESS NOTED. NO IV ACCESS, PENDING PICC LINE INSERTION. AWAITING PICC LINE INSERTION NURSE. AFEBRILE AND VITAL SIGNS STABLE. NO TELE. DENIES CP OR ANY DISCOMFORT AT THIS TIME. VOIDING FREELY.ON CONTACT ISOLATION, WILL MAINTAIN PREC. CALL LIGHT WITHIN REACH. WILL CONTINUE TO MONITOR.
--- NOTE | 2018-08-20 22:00 | NUR ---
PICC LINE INSERTED BY PICC LINE INSERTION NURSE, DOUBLE LUMEN, PT TOLERATED PROCEDURE WELL. CHEST X RAY DONE FOR PLACEMENT. WILL CONTINUE TO MONITOR.
--- NOTE | 2018-08-20 23:00 | NUR ---
PICC LINE NURSE CONFIRMED PLACEMENT, IV MEDS ORDERED AT 1900, NOT GIVEN, DR RAMIREZ MADE AWARE. PICC LINE CATH ( EACH PORT) FLUSHED WITH 10MLS OF NS PER PICC LINE INSERTION NURSE. STARTED ON IVF, NS AT 100ML/HR, INFUSING WELL AT THIS TIME. PT DENIES ANY PAIN OR ANY DISCOMFORT AT THIS TIME. DOOZING OFF AND ON .WILL CONTINUE TO MONITOR.
--- NOTE | 2018-08-20 23:09 | NUR ---
EYES CLOSED, APPEARS ASLEEP. EASILY AROUSABLE. RESP. EVEN AND UNLABORED. NO ACUTE DISTRESS NOTED. WILL CONTINUE TO MONITOR.
[2018-08-21 04:38] VITALS: BP 109/56
--- NOTE | 2018-08-21 06:19 | NUR ---
AFEBRILE AND VITAL SIGNS STABLE. RESP. EVEN AND UNLABORED. COMPLAINED OF BACK PAIN, 5/10, MEDICATED WITH NORCO PO ORDERED. IVF INTACT AND INFUSING VIA PICC LINE, INTACT AND SITE DRESSING DRY AND CLEAN. VOIDING FREELY. DUE MEDS GIVEN ORDERED. KEPT COMFORTABLE. WILL CONTINUE TO MONITOR.
[2018-08-21 07:07] LABS: CALCIUM 8.5 mg/dL (8.5-10.1); CARBON DIOXIDE 23.2 mmol/L (21-32); CHLORIDE SERUM 101 mmol/L (98-107); CREATININE SERUM 0.6 mg/dL (0.6-1.0); GFR1 > 60 mL/min; GLUCOSE SERUM 313 mg/dL (74-106); MAGNESIUM 1.8 mg/dL (1.8-2.4); PHOSPHOROUS 3.4 mg/dL (2.5-4.9); POTASSIUM SERUM 4.4 mmol/L (3.5-5.1); SODIUM SERUM 135 mmol/L (136-145)
--- NOTE | 2018-08-21 07:09 | NUR ---
RECEIVED REPORT FROM BAKARI CARTER. PT RESTING COMFORTABLY IN BED. PICC TO RODRICK IS PATENT AND INFUSING NS @ 100 ML/HR. NO REDNESS OR PAIN. PT ON ROOM AIR. NO C/O SOB AND NO DISTRESS NOTED. ALL QUESTIONS AND CONCERNS ADDRESSED.
[2018-08-21 07:30] LABS: BASOPHIL % 0.4 % (0-2); PLATELET COUNT 270 x10^3mcL (130-400); RED CELL DISTRIBUTION WIDTH 14.8 % (11.5-14.5)
[2018-08-21 08:36] VITALS: BP 93/59
--- NOTE | 2018-08-21 10:58 | NUR ---
Discount pharmacy card and list to low cost medical clinics given to patient by Martha Purvis.
[2018-08-21 12:55] VITALS: BP 93/59
--- NOTE | 2018-08-21 15:57 | NUR ---
SPOKE WITH CASE MANAGEMENT FOR [facility] FOR DISCHARGED PATIENT. PT HAS NO TRANSPORTATION AND REFUSES TO LEAVE BY BUS.
--- NOTE | 2018-08-21 15:59 | NUR ---
DR AVILA PAGED TO REQUEST REMOVAL OF PICC TO [facility]. AWAITING CALL RETURN.
[2018-08-21 18:54] VITALS: BP 98/48
--- NOTE | 2018-08-21 19:50 | NUR ---
RECEIVED PT IN BED AWAITNG FOR PICC LINE NURSE TO BE HERE FOR REMOVAL OF PT'S PICC LINE AT THE [facility], FOR DIACHARGE TODAY. CAR VOUCHER AVAILABLE AT THIS TIME. PT DENIES ANY PAIN/DISCOMFORT.VERY ANXIOUS TO BE DISACHARGED AT THIS TIME. EXPLAINED THE REASON FOR PENDING DIACHARGE, PT VERBALIZED UNDERSTANDING. NO S/S OF ACUTE DISTRESS.
--- NOTE | 2018-08-21 19:58 | NUR ---
REPORT GIVEN TO NA CARTER. PATIENT RESTING COMFORTABLY IN BED. ALL NEEDS MET.
--- NOTE | 2018-08-21 20:45 | NUR ---
PICC LINE NURSE REMOVED PICC LINE AT THE [facility] ASSETICALLY WITH COMPLETE TIP INTACT, PRESSURE DRESSING APPLIED SECURED WITH KERLIX. NO ACTIVE BLEEDING NOTED. [facility] WAS CALLED WILL BE HERE IN 30-50MINS. PT MADE AWARE.
[2018-08-21 21:20] VITALS: BP 123/76
--- NOTE | 2018-08-21 21:23 | NUR ---
DISCHARGED VIA VOUCHER TRANSPORTATION IN STABLE CONDITION. VITAL SIGNS TAKE T=98.7, HR=87, R=20/MIN, BP123/76. O2 RNK=088% ON ROOM AIR.
== END 2018-08-21 21:20 | disposition home or self-care (01) | DRG 420 ==
LOC: ED 13:33 → MU 16:10
PROVIDERS: Emergency Medicine; ADMIT General Practice
DX: E11.10 Type 2 diabetes mellitus with ketoacidosis without coma (principal); G93.41 Metabolic encephalopathy; E44.0 Moderate protein-calorie malnutrition; E11.42 Type 2 diabetes mellitus with diabetic polyneuropathy; E87.1 Hypo-osmolality and hyponatremia; F12.129 Cannabis abuse with intoxication, unspecified; F15.129 Other stimulant abuse with intoxication, unspecified; F43.10 Post-traumatic stress disorder, unspecified; F32.9 Major depressive disorder, single episode, unspecified; E03.9 Hypothyroidism, unspecified; Z59.0 Homelessness; Z79.4 Long term (current) use of insulin; Z68.25 Body mass index [BMI] 25.0-25.9, adult; Y92.89 Other specified places as the place of occurrence of the external cause
CPT/HCPCS: 82962; 83880; 84439; C1751; G0480; J1815; J7030

== ENCOUNTER 2018-11-24 01:51 | Emergency (ER) | payer MEDICAID ==
[~2018-11-24] VITALS: Ht 157.5 cm; Wt 64.9 kg
[~2018-11-24 01:51] MED LIST changes: +BASAGLAR K100 UNIT/1 SQ; +HUMALOG KW100 UNIT/1 SQ; +IBUPROFEN400 MG PO; +NEU300 PO; +VITAMIN D32000 I2 PO; +VOLTAREN100 GM TOP
[2018-11-24 02:01] VITALS: Ht 157.5 cm; Wt 64.9 kg
[2018-11-24 03:41] VITALS: BP 114/64
== END 2018-11-24 05:47 | disposition home or self-care (01) ==
LOC: ED 01:51
DX: S00.86XA Insect bite (nonvenomous) of other part of head, initial encounter (principal); T78.3XXA Angioneurotic edema, initial encounter; E11.9 Type 2 diabetes mellitus without complications; F32.9 Major depressive disorder, single episode, unspecified; F41.9 Anxiety disorder, unspecified; K21.9 Gastro-esophageal reflux disease without esophagitis; W57.XXXA Bitten or stung by nonvenomous insect and other nonvenomous arthropods, initial encounter; Y93.89 Activity, other specified; Y92.89 Other specified places as the place of occurrence of the external cause; Y99.8 Other external cause status
CPT/HCPCS: 90715

== ENCOUNTER 2018-11-26 14:43 | Emergency (ER) | payer MEDICAID ==
[~2018-11-26] VITALS: Ht 157.5 cm; Wt 64.4 kg
[2018-11-26 14:53] VITALS: Ht 157.5 cm; Wt 64.4 kg
[2018-11-26 17:44] LABS: AMPHETAMINE QUAL UR POSITIVE (See below)
[2018-11-26 18:08] LABS: BASOPHIL % 0.4 % (0-2); PLATELET COUNT 306 x10^3mcL (130-400); RED CELL DISTRIBUTION WIDTH 14.1 % (11.5-14.5)
[2018-11-26 18:11] LABS: CALCIUM 8.2 mg/dL (8.5-10.1); CARBON DIOXIDE 23.2 mmol/L (21-32); CHLORIDE SERUM 103 mmol/L (98-107); CREATININE SERUM 0.7 mg/dL (0.6-1.0); GFR1 > 60 mL/min; GLUCOSE SERUM 230 mg/dL (74-106); POTASSIUM SERUM 4.1 mmol/L (3.5-5.1); SODIUM SERUM 138 mmol/L (136-145)
[2018-11-26 18:15] LABS: ALKALINE PHOSPHATASE 111 U/L (46-116); ALT/SGPT 21 U/L (14-59); AST/SGOT 13 U/L (15-37); BILIRUBIN TOTAL 0.24 mg/dL (0.20-1.00); TOTAL PROTEIN, SERUM 7.7 g/dL (6.4-8.2)
[2018-11-26 18:16] LABS: ALBUMIN 3.1 g/dL (3.4-5.0)
[2018-11-26 22:11] VITALS: BP 125/72
== END 2018-11-26 22:11 | disposition home or self-care (01) ==
LOC: ED 14:43
PROVIDERS: Emergency Medicine
DX: L03.211 Cellulitis of face (principal); F32.9 Major depressive disorder, single episode, unspecified; F19.10 Other psychoactive substance abuse, uncomplicated; E11.40 Type 2 diabetes mellitus with diabetic neuropathy, unspecified; F41.9 Anxiety disorder, unspecified; W57.XXXA Bitten or stung by nonvenomous insect and other nonvenomous arthropods, initial encounter; Y93.89 Activity, other specified; Y92.89 Other specified places as the place of occurrence of the external cause; Y99.8 Other external cause status
CPT/HCPCS: 82962; G0480; J0696; J1885; J7030; J7060

== ENCOUNTER 2019-06-01 13:13 | Emergency (ER) | payer MEDICAID ==
[~2019-06-01] VITALS: Ht 157.5 cm; Wt 65.8 kg
[2019-06-01 13:17] VITALS: Ht 157.5 cm; Wt 65.8 kg
[2019-06-01 13:52] LABS: BASOPHIL % 0.6 % (0-2); PLATELET COUNT 329 x10^3mcL (130-400); RED CELL DISTRIBUTION WIDTH 13.7 % (11.5-14.5)
[2019-06-01 15:40] LABS: CALCIUM 9.1 mg/dL (8.5-10.1); CARBON DIOXIDE 20.7 mmol/L (21-32); CHLORIDE SERUM 97 mmol/L (98-107); CREATININE SERUM 0.9 mg/dL (0.6-1.0); GFR1 > 60 mL/min; POTASSIUM SERUM 4.5 mmol/L (3.5-5.1); SODIUM SERUM 133 mmol/L (136-145)
[2019-06-01 15:45] LABS: GLUCOSE SERUM 627 mg/dL (74-106)
[2019-06-01] MEDS ORDERED: ATIVAN0.5 M1 (16:03)
[2019-06-01] MEDS ORDERED: EFFEXOR XR150 MG (16:04)
[2019-06-01] MEDS ORDERED: OMEPRAZOLE10 M1 (16:06)
[2019-06-01 17:10] VITALS: BP 118/61
== END 2019-06-01 17:10 | disposition home or self-care (01) ==
LOC: ED 13:13
PROVIDERS: Emergency Medicine
DX: E11.65 Type 2 diabetes mellitus with hyperglycemia (principal); F17.210 Nicotine dependence, cigarettes, uncomplicated; K21.9 Gastro-esophageal reflux disease without esophagitis
CPT/HCPCS: 82962; 99406; J1815

== ENCOUNTER 2019-09-10 06:41 | Emergency (ER) | payer MEDICAID ==
[~2019-09-10] VITALS: Ht 165.1 cm; Wt 60.3 kg
[~2019-09-10 06:41] MED LIST changes: +ATIVAN0.5 M1; +EFFEXOR XR150 MG; +OMEPRAZOLE10 M1
[2019-09-10 06:47] VITALS: Ht 165.1 cm; Wt 60.3 kg
[2019-09-10 07:37] LABS: BASOPHIL % 0.5 % (0-2); PLATELET COUNT 342 x10^3mcL (130-400); RED CELL DISTRIBUTION WIDTH 14.4 % (11.5-14.5)
[2019-09-10 08:08] LABS: ALKALINE PHOSPHATASE 189 U/L (46-116); ALT/SGPT 37 U/L (14-59); AST/SGOT 16 U/L (15-37); BILIRUBIN TOTAL 0.13 mg/dL (0.20-1.00); CALCIUM 8.8 mg/dL (8.5-10.1); CARBON DIOXIDE 23.2 mmol/L (21-32); CHLORIDE SERUM 96 mmol/L (98-107); CREATININE SERUM 0.9 mg/dL (0.6-1.0); GFR1 > 60 mL/min; MAGNESIUM 2.3 mg/dL (1.8-2.4); PHOSPHOROUS 4.3 mg/dL (2.5-4.9); POTASSIUM SERUM 4.4 mmol/L (3.5-5.1); SODIUM SERUM 130 mmol/L (136-145); TOTAL PROTEIN, SERUM 7.4 g/dL (6.4-8.2)
[2019-09-10 08:11] LABS: ALBUMIN 3.3 g/dL (3.4-5.0)
[2019-09-10 08:13] LABS: GLUCOSE SERUM 642 mg/dL (74-106)
[2019-09-10 10:12] VITALS: BP 131/76
[2019-09-13] MEDS ORDERED: BASAGLAR K100 UNIT/1 SQ (09:16)
[2019-09-13] MEDS ORDERED: HUMALOG KW100 UNIT/1 SQ (09:17)
[2019-09-13] MEDS ORDERED: BACO TOP (09:18)
[2019-09-13] MEDS ORDERED: AUG500 PO (09:18)
== END 2019-09-10 10:12 | disposition home or self-care (01) ==
LOC: ED 06:41
PROVIDERS: Emergency Medicine
DX: E11.65 Type 2 diabetes mellitus with hyperglycemia (principal); E11.9 Type 2 diabetes mellitus without complications; I10 Essential (primary) hypertension; K21.9 Gastro-esophageal reflux disease without esophagitis
CPT/HCPCS: 82962; J7030